=== PATIENT | male | born 1995 | race American Indian/Alaskan Native ===

== ENCOUNTER 2021-04-10 16:04 | Emergency (ER) | payer OTHER ==
[2021-04-10 17:10] VITALS: BP 119/69
--- NOTE | 2021-04-10 19:38 | Event Note ---
ED Screening Note ED Screening Note: pt reports for CP that began a few months ago states he has also had abd pain for months no n/v/d no fever no blood in stool no urinary symptoms pmhx none no allergies to meds This initial assessment/diagnostic orders/clinical plan/treatment(s) is/are subject to change based on patients health status, clinical progression and re- assessment by fellow clinical providers in the ED. Further treatment and workup at subsequent clinical providers discretion. Patient/guardian urged not to elope from the ED as their condition may be serious if not clinically assessed and managed. Initial orders include: labs, urine, xr
[2021-04-10 20:20] LABS: Alanine Aminotransferase 13 units/L (7-56); Albumin 4.7 g/dL (3.9-5); Blood Urea Nitrogen 6 mg/dL (9-20); Hemolysis Index 33
[2021-04-10 20:22] LABS: BUN/Creatinine Ratio 10
[2021-04-10 20:26] LABS: Basophils % (Auto) 0.4 % (0.0-1.8); Eosinophils # (Auto) 0.1 K/mm3 (0.0-0.4); Eosinophils % (Auto) 1.2 % (0.0-4.3); Hematocrit 45.9 % (35.5-45.6); Hemoglobin 16.1 gm/dl (11.8-15.2); Lymphocytes # (Auto) 1.6 K/mm3 (1.2-5.4); Lymphocytes % (Auto) 22.3 % (13.4-35.0); Mean Corpuscular HGB Conc 35 % (32-34); Mean Corpuscular Volume 96 fl (84-94); Monocytes # (Auto) 0.3 K/mm3 (0.0-0.8); Monocytes % (Auto) 4.1 % (0.0-7.3); Platelet Count 219 K/mm3 (140-440); Red Blood Count 4.81 M/mm3 (3.65-5.03); Red Cell Distribution Width 13.5 % (13.2-15.2)
--- NOTE | 2021-04-10 20:29 | XRay Report ---
ACUTE ABDOMEN SERIES 3 VIEWS 2013 INDICATION: cp, abd pain RLQ COMPARISON: None available. FINDINGS: Lung cates are clear. No pneumoperitoneum is seen. Bowel gas pattern is unremarkable. No o bvious urinary tract calculi are seen. Signer Name: Nikolas Salinas MD Signed: 04/10/2021 8:25 PM Workstation Name: [id number]
[2021-04-10 21:16] LABS: Bilirubin,Urine NEG (Negative); Blood,Urine NEG (Negative); Color,Urine Yellow (Yellow); Mucus,Urine FEW /HPF; Protein,Urine <15 mg/dL mg/dL (Negative); Urobilinogen,Urine < 2.0 mg/dL (<2.0)
--- NOTE | 2021-04-10 21:59 | Emergency Department Report ---
ED General Adult HPI - General Chief complaint: Abdominal Pain Stated complaint: CP/ABDOMINAL PAIN PUI?: No Time Seen by Provider: 04/10/21 19:35 Source: patient Mode of arrival: Ambulatory Limitations: No Limitations - History of Present Illness Initial comments: 25-year-old male presents emerge department complaining of a 4 to 5-month history of recurrent chest pain and abdominal pain episodes of an unknown etiology. Symptoms associate with a vague discomfort to the right side of the abdomen and radiates up towards the epigastric region and the chest but reports no hemoptysis no hematemesis, no cough, no congestion, no fever, chills, sweats. -: Gradual, month(s) Location: abdomen Radiation: non-radiation Quality: dull Consistency: constant Improves with: none Worsens with: none Associated Symptoms: headaches. denies: confusion, cough, diaphoresis, loss of appetite, malaise, nausea/vomiting, shortness of breath, syncope, weakness Treatments Prior to Arrival: none - Related Data Previous Rx's Medication Instructions Recorded Last Taken Type Hyoscyamine Subl [Levsin Sl 0.125 0.125 mg SL Q6HR #20 tab 04/10/21 Unknown Rx TAB] Allergies Allergy/AdvReac Type Severity Reaction Status Date / Time No Known Allergies Allergy Unverified 04/10/21 17:07 ED Review of Systems ROS: Stated complaint: CP/ABDOMINAL PAIN Other details as noted in HPI Comment: All other systems reviewed and negative ED Past Medical Hx - Past Medical History Previous Medical History?: No - Surgical History Additional Surgical History: THUMB - Medications Home Medications: Home Medications Medication Instructions Recorded Confirmed Last Taken Type Hyoscyamine Subl [Levsin Sl 0.125 0.125 mg SL Q6HR #20 tab 04/10/21 Unknown Rx TAB] ED Physical Exam - General Limitations: No Limitations General appearance: alert, in no apparent distress - Head Head exam: Present: atraumatic, normocephalic - Eye Eye exam: Present: normal appearance, PERRL, EOMI Pupils: Present: normal accommodation - ENT ENT exam: Present: normal exam, mucous membranes moist - Neck Neck exam: Present: normal inspection, full ROM - Respiratory Respiratory exam: Present: normal lung sounds bilaterally. Absent: respiratory distress, rales, rhonchi - Cardiovascular Cardiovascular Exam: Present: regular rate, normal rhythm. Absent: systolic murmur, diastolic murmur, rubs, gallop - GI/Abdominal GI/Abdominal exam: Present: soft, normal bowel sounds. Absent: tenderness, guarding, organomegaly, mass, bruit, pulsatile mass - Rectal Rectal exam: Present: deferred - Extremities Exam Extremities exam: Present: normal inspection - Back Exam Back exam: Present: normal inspection - Neurological Exam Neurological exam: Present: alert, oriented X3 - Psychiatric Psychiatric exam: Present: normal affect, normal mood - Skin Skin exam: Present: warm, dry, intact, normal color. Absent: rash ED Course Vital Signs 04/10/21 04/10/21 17:08 17:09 Temperature 98.2 F Pulse Rate 72 Respiratory 16 Rate Blood Pressure 119/69 [Right] O2 Sat by Pulse 98 Oximetry ED Medical Decision Making - Lab Data Result diagrams: 04/10/21 19:47 04/10/21 19:47 Critical care attestation.: If time is entered above; I have spent that time in minutes in the direct care of this critically ill patient, excluding procedure time. ED Disposition Clinical Impression: Chronic abdominal pain Disposition: 01 HOME / SELF CARE / HOMELESS Is pt being admited?: No Does the pt Need Aspirin: No Condition: Stable Instructions: Chronic Pain, Adult Prescriptions: Hyoscyamine Subl [Levsin Sl 0.125 TAB] 0.125 mg SL Q6HR #20 tab Referrals: PRIMARY CARE, [Primary Care Provider] - 3-5 Days [facility] [Provider Group] - 3-5 Days
--- NOTE | 2021-04-12 09:48 | Electrocardiograph Report ---
[facility] Test Date: 2021-04-10 Test Time: 16:10:59 Pat Name: CORINE VALLE Department: Room: Gender: M Mail Processing Clerk: MAURIZIO : 1995 Requested By: JOSE DELEON Order Number: [id number] Reading MD: Jayden Durand Measurements Intervals Otho Rate: 83 P: 54 UT: 156 QRS: 55 QRSD: 99 T: 57 QT: 366 QTc: 431 Interpretive Statements Sinus rhythm NSST'S No previous ECG available for comparison Electronically Signed On 04-12-2021 9:47:54 EDT by Jayden Durand
== END 2021-04-10 22:22 | disposition home or self-care (01) ==
LOC: ED 16:04
DX: G89.29 Other chronic pain (principal); R10.13 Epigastric pain; R51.9 Headache, unspecified; Z79.899 Other long term (current) drug therapy
CPT/HCPCS: 36415; 74022; 80053; 81001; 83690; 84484; 85025; 93005; 99283; 99284

== ENCOUNTER 2022-02-12 23:53 | Emergency (ER) | payer OTHER | END 2022-02-13 03:00 | disposition left against medical advice (07) | LOC: ED 23:53 | DX: R10.9 Unspecified abdominal pain (principal); Z53.21 Procedure and treatment not carried out due to patient leaving prior to being seen by health care provider ==